=== PATIENT | female | born 1960 | race Caucasian/White ===

== ENCOUNTER 2019-11-08 14:53 | Emergency (ER) | payer OTHER, SELFPAY ==
[2019-11-08 15:04] VITALS: BP 98/59; PULSE 75; RESP 18; TEMP 36.9; O2SAT 99; BMI 29.2
--- NOTE | 2019-11-08 15:20 | HMH.EDGENADL ---
ED Disposition Clinical Impression: Sciatica of right side without back pain Disposition: Home, Self-Care Condition on Discharge: Fair Instructions: DI for Sciatica Additional Instructions: You have been evaluated for right-sided sciatic back pain. Please take prednisone and anti-inflammatories as prescribed. Use heat and ice. Complete physical therapy and strengthening exercises. Return to the emergency department if you have any new or worsening symptoms, fevers, pain, difficulty urinating, numbness in your genital area. Prescriptions: Naproxen [Naproxen 500mg tab] 500 mg PO BID #30 tab Prescription Printed predniSONE [Prednisone 20mg Tab] 40 mg PO DAILY 5 Days #10 tab Prescription Printed Referrals: Delicia Barraza APRN [Primary Care Provider] - - Critical Care Critical Care Time: No Attestation: On 11/08/19, the high probability of a clinically significant, sudden or life threatening deterioration of the following system(s) required my full and direct attention, intervention and personal management. The time I documented below is in addition to time spent performing reported procedures but includes the following listed in this critical care notation. Medical Decision Making - Frandy Inquiry Pt receiving controlled substance: No Vital Signs: 11/08/19 15:04 Temperature 98.5 F Temperature Source Oral Pulse Rate [Right Radial] 75 Respiratory Rate 18 Blood Pressure [Right Arm] 98/59 L Blood Pressure Mean [Right Arm] 72 Blood Pressure Source [Right Arm] Automatic Cuff Blood Pressure Position [Right Arm] Left Lateral 02 Sat by Pulse Oximetry 99 Oxygen Delivery Method Room Air Orders (Tests/Meds): ED MEDICATIONS Discontinued Medications Generic Name Dose Route Start Last Admin Trade Name Audrey PRN Reason Stop Dose Admin Ketorolac Tromethamine 15 mg 11/08/19 15:26 Toradol 30mg/Ml Vial IM 11/08/19 15:27 ONCE ONE Lidocaine 1 each 11/08/19 15:26 Lidoderm 5% Transdermal Patch TP 11/08/19 15:27 ONCE ONE Lorazepam 0.5 mg 11/08/19 15:26 Ativan 0.5mg Tablet PO 11/08/19 15:27 ONCE ONE Medical Decision Narrative: In summary this is a 59-year-old female with history of low back pain, sciatica presenting to the emergency department in pain crisis. She appears uncomfortable on arrival, unable to find a position of comfort on the stretcher. When laying down with a pillow between her knees she is much more comfortable. Able to tolerate the pain without medication. Differential diagnoses include sciatic back pain, spasm, lumbar disc disease. Patient does not have signs of cauda equina. She has no numbness or tingling in her genital area. No lower extremity weakness. No urinary changes. Plan to give Toradol, Ativan, Lidoderm patch and reassess. After medication patient was feeling somewhat better. She continued to have pain that was worse with sitting up and ambulating. She was given prescription for high-dose anti-inflammatories and a short course of prednisone. Recommended to take as prescribed. Also she should use Lidoderm patches, stretching, heat, ice. Continue physical therapy and follow-up with PCP. General Adult HPI - General Chief complaint: PAIN Stated complaint: back pain Time Seen by Provider: 11/08/19 15:24 Mode of Arrival: Wheelchair Limitations: No Limitations Description of Symptoms (Recalled from ER Triage Doc. by RN): c/o R side sciatic pain. Pt is scheduled physical therapy for sciatic pain but was unable to do therapy today r/t pain. Pt reports worsening then normal sciatic pain since wednesday of this week. - History of Present Illness HPI narrative: 59-year-old female presenting to the emergency department with right low back pain. Pain starts in her buttock and radiates into her back of her thigh. Pain has been present for the last week but is gotten significantly worse. She was told she has sciatica. Has not had spinal imag
[2019-11-08 15:56] VITALS: BP 100/57; PULSE 72; O2SAT 98
[2019-11-08 16:15] VITALS: BP 100/57; PULSE 76; RESP 20; TEMP 36.9; O2SAT 98
== END 2019-11-08 16:15 | disposition home or self-care (01) ==
PROVIDERS: Emergency Provider Emergency Medicine; PCP Nurse Practitioner
DX: M54.31 Sciatica, right side (principal); J44.9 Chronic obstructive pulmonary disease, unspecified; G43.709 Chronic migraine without aura, not intractable, without status migrainosus; F17.210 Nicotine dependence, cigarettes, uncomplicated; Z90.49 Acquired absence of other specified parts of digestive tract; Z90.79 Acquired absence of other genital organ(s)
CPT/HCPCS: 96372; 99282

== ENCOUNTER 2019-11-08 15:00 | Outpatient (RCR) | payer OTHER, SELFPAY | END 2019-11-08 15:05 | disposition home or self-care (01) | LOC: PT 15:00 | PROVIDERS: PCP Family Medicine; Visit Provider Nurse Practitioner | DX: G57.01 Lesion of sciatic nerve, right lower limb (principal) | CPT/HCPCS: 97163 ==

== ENCOUNTER → 2020-04-24 13:12 | Outpatient (CLI) | payer OTHER, SELFPAY ==
--- NOTE | 2020-04-24 | XR_ITS ---
PROCEDURE: XR SHOULDER LT MIN 2V CLINICAL INDICATION: BURSITIS OF LEFT DELTOID COMPARISON: No exams were available for comparison FINDINGS: No fracture or dislocation. No lytic or blastic change. There is normal mineralization. Minimal osteoarthritic change of the glenohumeral joint. No subacromial stenosis. Other findings:None. IMPRESSION: Minimal osteoarthritis otherwise negative Dictated by: Rafi Romano MD 04/24/2020 15:25 Rafi Romano MD in [facility] 04/24/2020 15:25
== END ==
PROVIDERS: PCP Family Medicine; Visit Provider Family Medicine
DX: M75.52 Bursitis of left shoulder (principal)
CPT/HCPCS: 73030

== ENCOUNTER → 2020-06-13 12:43 | Outpatient (CLI) | payer OTHER, SELFPAY ==
--- NOTE | 2020-06-13 12:50 | MR_ITS ---
PROCEDURE: MR SHOULDER LT WO CON CLINICAL INDICATION: BURSITIS OF LEFT DELTOID LIMITED ROM. UNABLE TO RAISE ARM ABOVE HEAD. SYMPTOMS X3-4MONTHS. NO INJURY. SHOULDER PAIN INFERIOR TO JOING. PRIOR X-RAY 04-24-20 COMPARISON: CR XR SHOULDER LT MIN 2V from 04/24/2020 TECHNIQUE: Routine multiplanar multi echo sequences are performed without gadolinium enhancement. FINDINGS: There are hypertrophic changes of the acromioclavicular joint with low-lying acromion and subacromial stenosis. Increased T2 signal involves the supraspinatus tendon with tendinopathy/tendinosis of the supraspinatus tendon with increased T2 signal involving the supraspinatus distally suggesting partial tear. The infraspinatus, subscapularis, and teres minor tendons have an unremarkable appearance. No evidence of complete or full-thickness tear is. No labral tear apparent. Small amount fluid is present in the bicipital tendon sheath suggesting tenosynovitis. IMPRESSION: Subacromial stenosis with tendinopathy/tendinosis of the supraspinatus tendon with possible partial tear of the supraspinatus but no evidence of full-thickness or complete tear Fluid in the bicipital tendon sheath which may be seen with tenosynovitis Dictated by: Rafi Romano MD 06/14/2020 13:50 Rafi Romano MD in [facility] 06/14/2020 13:50
== END ==
PROVIDERS: PCP Family Medicine; Visit Provider Family Medicine
DX: M75.52 Bursitis of left shoulder (principal)
CPT/HCPCS: 73221

== ENCOUNTER 2020-07-10 15:00 | Outpatient (RCR) | payer OTHER, SELFPAY ==
--- NOTE | 2020-05-15 11:43 | HMH.OTOPEV ---
OT Inpatient Evaluation Rehab OT Outpatient Eval Start: 05/15/20 11:35 Freq: Status: Active Protocol: Document 05/15/20 11:35 LAZARUS (Rec: 05/15/20 11:43 [id number] Electronically Signed By Minesh Reis OT 05/15/20 11:35 Outpatient Therapy Subjective History Subjective History Pt is a 58 year old female who reports to therapy for initial evaluation to Left shoulder. Pt reports she woke up one morning with pain in the shoulder. She does not recall a specific injury causing the pain. Pt initially thought she had slept on it wrong or pulled something , but her pain has progressively become worse in the past 3 months. Pt does demonstrate with decreased AROM and strength at left shoulder. Pt will continue to be seen in order to address all deficits. Chief Complaint Stiff,Weakness Symptom Type Ache,Throb,Dull Symptoms Relieved By Rest/Positioning Symptoms Aggravated By Physical Activity,Lifting Prior Functional Limitations None Current Functional Limitations Reaching,Lifting,Housework, Dressing,Driving,Sleeping, Recreation Activity Symptom Description Intermittent,Activity Dependent Level of pain today (0-10) 0 Pain scale - at its best (0-10) 0 Pain scale - at its worst (0-10) 10 Shoulder/Elbow Eval Shoulder Objective Measurements Shoulder ROM Left Shoulder Abduction Active Range of 70 degrees Motion (degrees) Shoulder Abduction Passive Range of 120 degrees Motion (degrees) Shoulder Flexion Active Range of Motion 95 degrees (degrees) Query Text: Shoulder Flexion Passive Range of Motion 120 degrees (degrees) Shoulder External Rotation Active Range 30 degrees of Motion (degrees) Shoulder External Rotation Passive Range 50 degrees of Motion (degrees) Shoulder Internal Rotation Active Range 30 degrees of Motion (degrees) Shoulder Internal Rotation Passive Range 50 degrees of Motion (degrees) pain with active ROM shoulder exam left standard pain with passive ROM shoulder exam left standard decreased ROM shoulder exam
--- NOTE | 2020-06-12 15:19 | HMH.RHREAS ---
Rehab Reassessment Rehab OP Re-assessment Start: 06/12/20 14:27 Freq: Status: Active Protocol: Document 06/12/20 14:27 LAZARUS (Rec: 06/12/20 15:19 LAZARUS [id number]) Electronically Signed By Minesh Reis OT 06/12/20 14:27 Rehab Re-assessment Subjective Subjective I go for a MRI tomorrow. Objective Objective Notes Pt has been seen twice a week previously in order to address left shoulder deficits. Each session pt engages in L shoulder AROM/AAROM/ Strengthening exercises. She also receives modalities in order to decrease pain/ inflammation at left shoulder. Assessment Progress Assessment Slower Than Expected Assessment Notes Pt reports her pain continues to remain high at worst: 8/10. She does not feel she has improved as much as she would like since starting therapy. Pt is receiving a MRI in order to further evaluate shoulder deficits. Pt continues to have significant decline in AROM at left shoulder. Current AROM L shoulder: Flex: 125 degrees Abd: 95 degrees ER: 60 degrees IR: 30 degrees Patient goals met N/A Goals Not Met see below Revised Goals Continue progressing towards all short term and snf goals written on initial evaluation. Plan Plan Continue with OT plan of care Frequency of Therapy 2x's a week Duration of therapy 4 more weeks Time and Billing Re-Eval Time 10 Re-Eval Billing Units 1 PHYSICIAN CERTIFICATION: I certify the specified therapy services for Yeni Nova are required, authorized, and reviewed every 30 days.
--- NOTE | 2020-07-10 15:59 | HMH.RHREAS ---
Rehab Reassessment Rehab OP Re-assessment Start: 06/12/20 14:27 Freq: Status: Active Protocol: Document 07/10/20 15:07 LAZARUS (Rec: 07/10/20 15:59 LAZARUS [id number]) Electronically Signed By Minesh Reis OT 07/10/20 15:07 Rehab Re-assessment Subjective Subjective I do feel it is moving better . Objective Objective Notes Pt has been seen twice a week previously in order to address left shoulder deficits. Each session pt engages in L shoulder AROM/AAROM/ Strengthening exercises. She also receives modalities in order to decrease pain/ inflammation at left shoulder. Assessment Progress Assessment Slower Than Expected Assessment Notes Pt's AROM has improved since last re-assessment; however she is still limitied in ER/IR AROM. Pt also still has significant pain in IR. Pt reports her shoulder has improved significantly since last assessment. Pt reports she returns to the doctor this coming wednesday. Pt says her pain at worst now is a 2/10. Pt is also asking if she can discotninue therapy and completed exercises on her own . Current AROM L shoulder: Flex: 130 degrees Abd: 135 degrees ER: 70 degrees IR: 40 degrees Patient goals met Pt has met all short term goals written on initial evaluation Goals Not Met see below Revised Goals Continue progressing towards intermission coordinator goals written on initial evaluation. Plan Plan Continue with OT plan of care Frequency of Therapy 2x's a week Duration of therapy 4 more weeks Time and Billing Re-Eval Time 10 Re-Eval Billing Units 1 PHYSICIAN CERTIFICATION: I certify the specified therapy services for Yeni [facility] are required, authorized, and reviewed every 30 days.
== END 2020-07-10 15:05 | disposition home or self-care (01) ==
LOC: OT 15:00
PROVIDERS: Visit Provider Family Medicine
DX: M75.52 Bursitis of left shoulder (principal)
CPT/HCPCS: 97014; 97110; 97140; 97164; 97166; G0283

== ENCOUNTER 2021-05-08 10:11 | Emergency (ER) | payer OTHER, SELFPAY ==
[2021-05-08 10:22] VITALS: BP 139/118; PULSE 83; RESP 18; TEMP 37.1; O2SAT 100; BMI 30.2
--- NOTE | 2021-05-08 10:24 | CT_ITS ---
PROCEDURE INFORMATION: Exam: CT Lumbar Spine Without Contrast Exam date and time: 05/08/2021 10:24 AM Age: 61 years old Clinical indication: Low back pain. TECHNIQUE: Imaging protocol: Computed tomography images of the lumbar spine without contrast. Radiation optimization: All CT scans at this facility use at least one of these dose optimization techniques: automated exposure control; mA and/or kV adjustment per patient size (includes targeted exams where dose is matched to clinical indication); or iterative reconstruction. COMPARISON: No relevant prior studies available. FINDINGS: Vertebrae: No acute fracture. Normal alignment. Discs/Spinal canal/Neural foramina: No significant disc protrusion. No severe spinal canal stenosis. No significant neural foraminal narrowing. Gallbladder and bile ducts: The patient is status post cholecystectomy. Vasculature: There are calcified atherosclerotic changes of the aorta. Soft tissues: Unremarkable. IMPRESSION: No acute findings.
--- NOTE | 2021-05-08 10:45 | PC.NURSE ---
Spoke with joe monteiro [facility]
--- NOTE | 2021-05-08 10:50 | PC.NURSE ---
Pt is resting comfortably in bed sleeping.
--- NOTE | 2021-05-08 11:00 | PC.NURSE ---
Pt to rad
--- NOTE | 2021-05-08 11:17 | HMH.EDBACK ---
ED Disposition Clinical Impression: Strain of lumbar region Qualifiers: Encounter type: initial encounter Qualified Code(s): S39.012A - Strain of muscle, fascia and tendon of lower back, initial encounter Disposition: Home, Self-Care Condition on Discharge: Good Instructions: DI for Low Back Pain Prescriptions: Ibuprofen [Ibuprofen 800mg Tablet] 800 mg PO TIDP PRN #20 tab PRN Reason: Moderate Pain Transmission Status: Pending to [facility] methocarbamoL [Methocarbamol] 750 mg PO QID 7 Days #28 tab Transmission Status: Pending to [facility] Referrals: Delicia Barraza APRN [Primary Care Provider] - - Critical Care Critical Care Time: No Attestation: On 05/08/21, the high probability of a clinically significant, sudden or life threatening deterioration of the following system(s) required my full and direct attention, intervention and personal management. The time I documented below is in addition to time spent performing reported procedures but includes the following listed in this critical care notation. Medical Decision Making - Medical Records Medical records reviewed: Yes: I reviewed the patient's medical records. - Frandy Inquiry Pt receiving controlled substance: Yes Frandy was queried for this patient: Yes Reference #:: [id number] Risks and benefits of using a controlled substance: were discussed with pt by me Vital Signs: 05/08/21 10:22 05/08/21 11:26 05/08/21 11:45 Temperature 98.7 F Temperature Source Oral Pulse Rate 71 65 Pulse Rate [Right Radial] 83 Respiratory Rate 18 Blood Pressure 141/89 H 143/88 H Blood Pressure [Right Arm] 139/118 H Blood Pressure Mean [Right Arm] 125 Blood Pressure Source [Right Arm] Automatic Cuff Blood Pressure Position [Right Arm] Supine 02 Sat by Pulse Oximetry 100 92 L 92 L Oxygen Delivery Method Room Air Orders (Tests/Meds): ED MEDICATIONS Discontinued Medications Generic Name Dose Route Start Last Admin Trade Name Freq PRN Reason Stop Dose Admin Hydrocodone Bitart/Acetaminophen 2 tab 05/08/21 10:24 05/08/21 10:34 Hydrocodone/Apap 5/325 Mg Tablet PO 05/08/21 10:25 2 tab ONCE ONE Administration Ondansetron HCl 4 mg 05/08/21 10:45 05/08/21 10:46 Ondansetron 4mg/2ml Vial IV 05/08/21 10:46 4 mg ONCE ONE Administration - CT Data CT Scan: L-Spine Time Received: 12:[address] Reviewed: Yes: I have reviewed the patient's CT results, I have viewed the radiologist's interpretation Preliminary Findings: Normal/NAD, No Fracture Seen - Reevaluation(s) Time: 12:12 Reevaluation #1: On reevaluation, the patient is feeling much better. Repeat examination is benign. There is no evidence of spinal cord compression. Findings consistent with lumbar strain and spasm. Patient be discharged with short course of medications. He is to follow-up with PCP in 48 hours. Given strict return precautions. Verbalized understanding. Medical Decision Narrative: 61-year-old female presenting with some lower back pain after lifting injury. Patient is some tenderness in the lower spine. Do believe symptoms are consistent with a lumbar strain with spasm. Patient provided analgesics. Work-up initiated. Back Pain HPI - General Chief Complaint: Back Pain/Injury Stated Complaint: back pain Time Seen by Provider: 05/08/21 10:30 Mode of Arrival: Ambulatory Limitations: No Limitations Description of Symptoms (Recalled from ER Triage Doc. by RN): Pt stated that she was taking the trash out and her body locked up . She stated that she laid on the ground while friend called EMS. She stated that her pain is in her mid to lower back - History of Present Illness HPI Narrative: Is a 61-year-old female presented to the emergency department with some lower back pain. Patient states that she was picking up some of her a trash can to take the trash out and she felt the pain in her lower back. It was its in natu
[2021-05-08 11:26] VITALS: BP 141/89; PULSE 71; O2SAT 92
[2021-05-08 11:45] VITALS: BP 143/88; PULSE 65; O2SAT 92
[2021-05-08 12:32] VITALS: BP 138/72; PULSE 87; RESP 16; TEMP 36.8; O2SAT 98
== END 2021-05-08 12:33 | disposition home or self-care (01) ==
PROVIDERS: Emergency Provider Emergency Medicine; PCP Nurse Practitioner
DX: S39.012A Strain of muscle, fascia and tendon of lower back, initial encounter (principal); X50.9XXA Other and unspecified overexertion or strenuous movements or postures, initial encounter; Y92.019 Unspecified place in single-family (private) house as the place of occurrence of the external cause; F17.210 Nicotine dependence, cigarettes, uncomplicated; J44.9 Chronic obstructive pulmonary disease, unspecified; G43.709 Chronic migraine without aura, not intractable, without status migrainosus
CPT/HCPCS: 72131; 96374; 99282; J2405

== ENCOUNTER → 2021-05-12 16:18 | Outpatient (CLI) | payer OTHER, SELFPAY | PROVIDERS: Visit Provider Surgery | DX: Z01.812 Encounter for preprocedural laboratory examination (principal); Z20.822 Contact with and (suspected) exposure to COVID-19; K64.9 Unspecified hemorrhoids; Z85.048 Personal history of other malignant neoplasm of rectum, rectosigmoid junction, and anus; Z86.010 Personal history of colon polyps | CPT/HCPCS: C9803; U0003; U0005 ==

== ENCOUNTER 2021-05-15 08:07 | Day surgery (SDC) | payer OTHER, SELFPAY ==
[2021-05-15 08:30] VITALS: BP 104/67; PULSE 109; RESP 18; TEMP 36.4; O2SAT 98
--- NOTE | 2021-05-15 09:20 | HMH.ANESCL ---
[facility] Anesthesia Checklist - Patient Identification Patient Identification: Arm Band - Structural Data Admitted From: Home Planned Operative Procedure/s: colonoscopy Consent for Planned Operative Procedure(s) Verified: Yes Verified Documents: Surgical Consent, History and Physical - NPO Status Verified Time NPO: 00:00 - Additional verifications Anesthesia Reactions: Yes (PONV) - Airway Assessment C-Spine Mobility Assessed: Yes (mp2) TMJ Mobility Assessed: Yes Dentition: Edentulous - Neurological Assessment Level of Consciousness: Awake, Alert - Anesthesia Plan Anesthesia Risk discussed: Yes Anesthesia Plan: Verified ASA Class: II Anesthesia Type: [facility] History I have reviewed the patient's past medical history: Yes Medical History: Reports:: Cancer (colon, cervical), Chronic Obstructive Pulmonary Disease (COPD), Hepatitis (Hx Hep B in 1969's), Migraine Denies:: Diabetes Mellitus Type 1, Diabetes Mellitus Type 2, Internal Pacemaker, MRSA, Seizures *Have you ever received a pneumonia vaccine?: No *Have you received a flu vaccine this season?: No Anesthesia experience/problems:: nac Other Surgeries: Yes: Cholecystectomy, Colonoscopy, EGD, Hysterectomy-Total. No: Pacemaker Amputation: No Fractures: No - *Social History Last grade of school completed: High school graduate Smoking Status: Current every day smoker Tobacco Type: cigarettes # Packs/Day (cigarettes): 1 Alcohol Intake: current Alcohol Intake Frequency:: holidays/special occasions only Substance Use Type: denies use *Occupational Status:: employed Housing: house Household Members: spouse *Travel in the last 8 weeks: None Family Hx:: Cancer, Coronary Artery Disease, Diabetes
[2021-05-15 10:21] VITALS: O2SAT 97
--- NOTE | 2021-05-15 11:01 | HMH.SCOPE ---
- Procedure: Date: 05/15/21 Patient Date of :: 1960 Procedure Performed:: Colonoscopy with biopsy Indications:: History of colon polyps History of anal cancer Intermittent blood per rectum Performing Provider:: Rod Emerson MD Referring Provider:: . Sedation:: Monitored anesthesia care Procedure:: After informed consent was obtained the patient was taken to the endoscopy suite. Sedation ensued after the patient was transferred to the left lateral decubitus position. Pulse, blood pressure, and oxygen saturation were monitored throughout the procedure. Digital rectal exam revealed no significant abnormality. The colonoscope was placed in position. The entire colon was evaluated. The colonoscope was carefully removed and the patient was transferred to recovery in stable condition. Please see findings and specimens below for detail. Findings:: Bowel preparation relatively fair Anal margin inflammatory changes with no active bleeding Minimal hemorrhoidal cushions Fairly significant spasticity and lack of relaxation Specimens:: Anal canal inflammation (multiple biopsies) Recommendations:: Follow-up pathology Complications:: No immediate Estimated blood obtained (mL): 1
[2021-05-15 11:04] VITALS: BP 91/68; PULSE 100; RESP 16; TEMP 36.5; O2SAT 94
[2021-05-15 11:14] VITALS: BP 96/65; PULSE 86; RESP 16; O2SAT 97
[2021-05-15 11:24] VITALS: BP 97/63; PULSE 76; RESP 16; O2SAT 98
[2021-05-15 11:34] VITALS: BP 103/55; PULSE 75; RESP 16; O2SAT 98
== END 2021-05-15 11:34 | disposition home or self-care (01) ==
LOC: OUTP 08:12
PROVIDERS: PCP Nurse Practitioner; Visit Provider Surgery
PROC: 0DJD8ZZ Inspection of Lower Intestinal Tract, Via Natural or Artificial Opening Endoscopic (ICD-10-PCS; CPT 45380; principal; 2021-05-15 10:00)
DX: K62.9 Disease of anus and rectum, unspecified (principal); K64.9 Unspecified hemorrhoids; K58.9 Irritable bowel syndrome, unspecified; Z85.048 Personal history of other malignant neoplasm of rectum, rectosigmoid junction, and anus; Z86.010 Personal history of colon polyps; J44.9 Chronic obstructive pulmonary disease, unspecified; G43.909 Migraine, unspecified, not intractable, without status migrainosus; Z86.19 Personal history of other infectious and parasitic diseases; Z90.49 Acquired absence of other specified parts of digestive tract; Z72.0 Tobacco use; Z80.9 Family history of malignant neoplasm, unspecified; Z83.3 Family history of diabetes mellitus; Z82.49 Family history of ischemic heart disease and other diseases of the circulatory system
CPT/HCPCS: 45380

== ENCOUNTER → 2022-01-16 10:40 | Outpatient (CLI) | payer OTHER, SELFPAY ==
[2022-01-16 18:14] LABS: Basophils # 0.1 K/mm3 (0-0.2); Basophils % 1.5 % (0.1-2.0); Eosinophils # 0.2 K/mm3 (0.0-0.4); Eosinophils % 3.4 % (0.1-12.0); Hematocrit 45.6 % (37.0-47.0); Hemoglobin 14.6 g/dL (12.2-16.2); Lymphocytes # 1.7 K/mm3 (0.7-4.5); Lymphocytes % 24.7 % (10-50); Mean Corpuscular HGB Conc 31.9 g/dL (31.8-35.4); Mean Corpuscular Hemoglobin 29.1 pg (27.0-31.2); Mean Corpuscular Volume 91.2 fl (81-99); Mean Platelet Volume 10.3 fl (7.4-10.4); Monocytes # 0.3 K/mm3 (0.1-1.0); Monocytes % 5.1 % (1.7-9.3); Neutrophils # 4.4 K/mm3 (1.8-7.8); Neutrophils % 65.4 % (37.0-80.0); Platelet Count 240 K/mm3 (142-424); Red Blood Count 5.01 M/mm3 (4.20-5.40); Red Cell Distribution Width 13.5 % (11.5-17.5); White Blood Count 6.7 K/mm3 (4.8-10.8)
[2022-01-16 18:29] LABS: Alanine Aminotransferase 16 U/L (12-78); Albumin Level 4.2 g/dl (3.5-5.0); Albumin/Globulin Ratio 1.7 (1.1-1.8); Alkaline Phosphatase 86 U/L (38-126); Anion Gap 8.1 mEq/L (5-15); Aspartate Amino Transferase 23 U/L (14-36); Bilirubin,Total 0.2 mg/dl (0.2-1.3); Blood Urea Nitrogen 9 mg/dl (7-17); Calcium 9.7 mg/dl (8.4-10.2); Carbon Dioxide 29 mmol/L (22.0-30.0); Chloride 106 mmol/L (98-107); Estimated Glomerular Filt Rate 102 ml/min (>60); GFR (African American) 124 ML/MIN (>60); Globulin 2.5 g/dL (1.3-3.2); Glucose 125 mg/dl (74-100); Potassium 4.1 mmoL/L (3.5-5.1); Sodium 139 mmol/L (136-145); Total Protein,Serum 6.7 g/dl (6.3-8.2)
[2022-01-16 19:00] LABS: Thyroid Stimulating Hormone 0.15 uIU/mL (0.465-4.68)
[2022-01-16 19:19] LABS: Vitamin B12 384 pg/mL (239-931)
== END ==
PROVIDERS: PCP Family Medicine; Visit Provider Family Medicine
DX: R15.9 Full incontinence of feces (principal)
CPT/HCPCS: 80053; 82607; 84443; 85025

== ENCOUNTER → 2022-02-24 06:18 | Outpatient (CLI) | payer OTHER, SELFPAY ==
[2022-02-24 19:37] LABS: Alanine Aminotransferase 12 U/L (12-78); Albumin/Globulin Ratio 1.6 (1.1-1.8); Alkaline Phosphatase 63 U/L (38-126); Anion Gap 14.5 mEq/L (5-15); Aspartate Amino Transferase 28 U/L (14-36); Bilirubin,Total 0.5 mg/dl (0.2-1.3); Blood Urea Nitrogen 10 mg/dl (7-17); Calcium 9.1 mg/dl (8.4-10.2); Carbon Dioxide 22 mmol/L (22.0-30.0); Chloride 106 mmol/L (98-107); Estimated Glomerular Filt Rate 102 ml/min (>60); GFR (African American) 124 ML/MIN (>60); Globulin 2.5 g/dL (1.3-3.2); Glucose 114 mg/dl (74-100); Potassium 4.5 mmoL/L (3.5-5.1); Sodium 138 mmol/L (136-145); Total Protein,Serum 6.5 g/dl (6.3-8.2)
== END ==
PROVIDERS: PCP Family Medicine; Visit Provider Family Medicine
DX: Z01.818 Encounter for other preprocedural examination (principal)
CPT/HCPCS: 80053

== ENCOUNTER → 2022-04-28 11:32 | Outpatient (CLI) | payer OTHER, SELFPAY ==
[2022-04-28 18:48] LABS: Alanine Aminotransferase 15 U/L (12-78); Albumin Level 4.5 g/dl (3.5-5.0); Albumin/Globulin Ratio 1.8 (1.1-1.8); Alkaline Phosphatase 82 U/L (38-126); Aspartate Amino Transferase 21 U/L (14-36); Bilirubin,Total 0.4 mg/dl (0.2-1.3); Blood Urea Nitrogen 9 mg/dl (7-17); Calcium 10.1 mg/dl (8.4-10.2); Carbon Dioxide 28 mmol/L (22.0-30.0); Chloride 102 mmol/L (98-107); Estimated Glomerular Filt Rate 102 ml/min (>60); GFR (African American) 123 ML/MIN (>60); Globulin 2.5 g/dL (1.3-3.2); Glucose 93 mg/dl (74-100); Sodium 140 mmol/L (136-145)
[2022-04-28 19:19] LABS: Thyroid Stimulating Hormone 1.55 uIU/mL (0.465-4.68)
== END ==
PROVIDERS: PCP Family Medicine; Visit Provider Family Medicine
DX: E05.90 Thyrotoxicosis, unspecified without thyrotoxic crisis or storm (principal); R15.9 Full incontinence of feces; Z72.0 Tobacco use
CPT/HCPCS: 80053; 84443

== ENCOUNTER → 2023-03-16 13:46 | Outpatient (CLI) | payer OTHER, SELFPAY ==
--- NOTE | 2023-03-16 13:49 | US_ITS ---
FINAL REPORT CLINICAL HISTORY: hx thyroid disorder COMPARISON: None FINDINGS: THYROID ULTRASOUND: The right lobe of the thyroid gland measures 4.2 x 1.7 x 1.3 cm in size. The left lobe of the thyroid gland measures 3.6 x 1.3 x 1.3 cm in size. The isthmus measures 4 mm in thickness. No focal nodules or masses are noted in either lobe of the thyroid gland. IMPRESSION: No focal nodules or masses are seen in the thyroid gland. Reviewed, Interpreted and Dictated by Liang Howard III, MD Transcribed by Yasmine Dover Authenticated and [facility]
[2023-03-16 14:18] LABS: MANUAL DIFFERENTIAL MANUAL DIFFERENTIAL (MANUAL DIFF)
[2023-03-16 14:53] LABS: Basophils # 0.1 K/mm3 (0-0.2); Basophils % 0.9 % (0.1-2.0); Eosinophils # 0.3 K/mm3 (0.0-0.4); Eosinophils % 3.9 % (0.1-12.0); Hematocrit 42.8 % (37.0-47.0); Hemoglobin 14.7 g/dL (12.2-16.2); Lymphocytes # 1.8 K/mm3 (0.7-4.5); Lymphocytes % 26.7 % (10-50); Mean Corpuscular HGB Conc 34.3 g/dL (31.8-35.4); Mean Corpuscular Hemoglobin 30.6 pg (27.0-31.2); Mean Corpuscular Volume 89.2 fl (81-99); Mean Platelet Volume 9.7 fl (7.4-10.4); Monocytes # 0.3 K/mm3 (0.1-1.0); Monocytes % 4.6 % (1.7-9.3); Neutrophils # 4.3 K/mm3 (1.8-7.8); Neutrophils % 63.9 % (37.0-80.0); Platelet Count 192 K/mm3 (142-424); Red Cell Distribution Width 13.3 % (11.5-17.5); White Blood Count 6.7 K/mm3 (4.8-10.8)
[2023-03-16 15:55] LABS: Alanine Aminotransferase 16 U/L (12-78); Albumin Level 4.2 g/dl (3.5-5.0); Albumin/Globulin Ratio 1.8 (1.1-1.8); Alkaline Phosphatase 64 U/L (38-126); Aspartate Amino Transferase 18 U/L (14-36); Bilirubin,Total 0.5 mg/dl (0.2-1.3); Blood Urea Nitrogen 8 mg/dl (7-17); Calcium 9.4 mg/dl (8.4-10.2); Carbon Dioxide 29 mmol/L (22.0-30.0); Chloride 105 mmol/L (98-107); Estimated Glomerular Filt Rate 102 ml/min (>60); GFR (African American) 123 ML/MIN (>60); Globulin 2.3 g/dL (1.3-3.2); Glucose 92 mg/dl (74-100); Sodium 140 mmol/L (136-145); Total Protein,Serum 6.5 g/dl (6.3-8.2)
[2023-03-16 16:10] LABS: Free T4 (Free Thyroxine) 1.06 ng/dl (0.78-2.19)
[2023-03-16 16:15] LABS: Eosinophils % 2 % (0-3); Lymphocytes % 28 % (10-50); Monocytes % 3 % (2-9); Neutrophils % 67 % (42-76); Platelet Estimate Normal; RBC Morphology Normal; Total Cells Counted 100
[2023-03-16 16:25] LABS: Thyroid Stimulating Hormone 1.37 uIU/mL (0.465-4.68)
== END ==
LOC: RAD 13:46
PROVIDERS: PCP Nurse Practitioner; Visit Provider Nurse Practitioner
DX: E05.90 Thyrotoxicosis, unspecified without thyrotoxic crisis or storm (principal); R53.83 Other fatigue
CPT/HCPCS: 36415; 76536; 80053; 84439; 84443; 85007; 85014; 85018; 85048; 85049

== ENCOUNTER 2023-09-28 18:00 | Outpatient (CLI) | payer OTHER, SELFPAY ==
[2023-09-28 18:30] LABS: Basophils # 0.1 K/mm3 (0-0.2); Basophils % 1.1 % (0.1-2.0); Eosinophils # 0.2 K/mm3 (0.0-0.4); Eosinophils % 2.2 % (0.1-12.0); Hemoglobin 14.9 g/dL (12.2-16.2); Lymphocytes # 1.7 K/mm3 (0.7-4.5); Lymphocytes % 22.2 % (10-50); Mean Corpuscular HGB Conc 32.4 g/dL (31.8-35.4); Mean Corpuscular Hemoglobin 29.6 pg (27.0-31.2); Mean Corpuscular Volume 91.4 fl (81-99); Mean Platelet Volume 9.6 fl (7.4-10.4); Monocytes # 0.4 K/mm3 (0.1-1.0); Monocytes % 4.9 % (1.7-9.3); Neutrophils # 5.4 K/mm3 (1.8-7.8); Neutrophils % 69.6 % (37.0-80.0); Platelet Count 232 K/mm3 (142-424); Red Blood Count 5.03 M/mm3 (4.20-5.40); Red Cell Distribution Width 13.5 % (11.5-17.5); White Blood Count 7.8 K/mm3 (4.8-10.8)
[2023-09-28 18:47] LABS: Anion Gap 8.1 mEq/L (5-15); Blood Urea Nitrogen 10 mg/dl (7-17); Calcium 9.6 mg/dl (8.4-10.2); Carbon Dioxide 28 mmol/L (22.0-30.0); Chloride 109 mmol/L (98-107); Estimated Glomerular Filt Rate 102 ml/min (>60); GFR (African American) 123 ML/MIN (>60); Glucose 103 mg/dl (74-100); Potassium 4.1 mmoL/L (3.5-5.1); Sodium 141 mmol/L (136-145)
== END 2023-09-28 23:59 | disposition home or self-care (01) ==
LOC: LAB.DROPOF 09-29 08:24
PROVIDERS: PCP Nurse Practitioner; Visit Provider Nurse Practitioner
DX: Z01.812 Encounter for preprocedural laboratory examination (principal)
CPT/HCPCS: 80048; 85025